=== PATIENT | female | born 1980 | race Caucasian/White ===

== ENCOUNTER 2016-08-12 10:44 | Emergency (ER) | payer OTHER ==
[2016-08-12] MEDS ORDERED: DEXAMETHASONE 10 MG/ML VIAL PO STA (12:25)
[2016-08-12] MEDS ORDERED: DEXAMETHASONE 10 MG/ML VIAL ONE (12:29)
[2016-08-12] MEDS ORDERED: CHERRY SYRUP 10 ML UDC PO ONE (12:29)
== END 2016-08-12 12:41 | disposition home or self-care (01) ==
DX: M75.52 Bursitis of left shoulder (principal); X50.1XXA Overexertion from prolonged static or awkward postures, initial encounter; I10 Essential (primary) hypertension
CPT/HCPCS: 73030; 99283; A9270

== ENCOUNTER 2017-01-01 15:46 | Emergency (ER) | payer OTHER ==
[2017-01-01] MEDS ORDERED: HYDROcod/ACETAM 5/325 MG TABLET PO STA (16:14)
--- NOTE | 2017-01-01 16:16 | ED Physician Documentation ---
PD HPI UPPER EXT INJURY - Stated complaint Stated Complaint: FELL SHOULDER PX - Chief complaint Chief Complaint: Ext Problem - History obtained from History obtained from: Patient - History of Present Illness Location: Left, Shoulder Type of injury: Fall Where injury occurred: Home Timing - onset: Today Timing - details: Abrupt onset Worsened by: Moving Similar symptoms before: Other (impingement) Review of Systems Constitutional: reports: Reviewed and negative Nose: reports: Reviewed and negative Cardiac: reports: Reviewed and negative PD PAST MEDICAL HISTORY - Past Medical History Cardiovascular: Hypertension Respiratory: None Neuro: None Endocrine/Autoimmune: None GI: None DREDGE OPERATOR: None : None HEENT: None Psych: Depression, ADD/ADHD Musculoskeletal: None Derm: None - Past Surgical History Past Surgical History: Yes General: Colonoscopy, EGD /DREDGE OPERATOR: section - Present Medications Home Medications: Ambulatory Orders Medication Instructions Recorded Confirmed HYDROcod/ACETAM 5/325 [[place] 5/325] 1 - 2 ea PO Q6H PRN #15 tablet 08/12/16 HYDROcod/ACETAM 5/325 [[place] 5/325] 1 - 2 ea PO Q6H PRN #15 tablet 01/01/17 Lisinopril 1 mg PO DAILY 01/01/17 01/01/17 - Allergies Allergies/Adverse Reactions: Allergies Allergy/AdvReac Type Severity Reaction Status Date / Time No Known Drug Allergies Allergy Verified 06/05/16 20:43 - Social History Does the pt smoke?: No Smoking Status: Never smoker Does the pt drink ETOH?: Yes Does the pt have substance abuse?: No - Immunizations Immunizations are current?: Yes - POLST Patient has POLST: No PD ED PE NORMAL - Vitals Vital signs reviewed: Yes - General General: Alert and oriented X 3, No acute distress - Neck Neck: Supple, no meningeal sign, No bony TTP - Extremities Extremities: Other (TTP distal clavicle and top of GH joint, can range a bit. Normal radial pulses and hand sensation.) - Neuro Neuro: Alert and oriented X 3, Normal speech - Psych Psych: Normal mood, Normal affect Results - Vitals Vitals: Vital Signs - 24 hr 01/01/17 15:56 Temperature 36.5 C Heart Rate 84 Respiratory 20 Rate Blood Pressure 180/123 H O2 Saturation 100 Oxygen O2 Source Room air - Rads (name of study) L shoulder 2v Radiology: EMP read contemporaneously (negative) Departure - Departure Disposition: 01 Home, Self Care Clinical Impression: Sprain of left shoulder Qualifiers: Encounter type: initial encounter Shoulder sprain type: unspecified sprain Qualified Code(s): S43.402A - Unspecified sprain of left shoulder joint, initial encounter Condition: Good Instructions: ED Sprain Shoulder Prescriptions: HYDROcod/ACETAM 5/325 [[place] 5/325] 1 - 2 ea PO Q6H PRN #15 tablet PRN Reason: Pain Comments: Follow-up with your orthopedic surgeon in about a week with x-rays in hand. Return if worse. Wear the sling for comfort but try to come out of it several times a day to move the shoulder around. Your blood pressure was elevated today on check into the emergency department. This does not mean that you have hypertension, it is a common phenomenon to come to the emergency department and have elevated blood pressure. I recommend that she see her primary care physician within the week to have it rechecked when you are feeling better. Do not drink or drive while taking narcotic pain medication. Note that many narcotic pain relievers also contain Tylenol/acetaminophen. Please ensure that your total dose of acetaminophen from all sources does not exceed 3 g (3000 mg) per day. You may get constipated while on this medication. Take a stool softener such as Colace twice a day while you are on it. Also add an ykos-mey-yegbovb laxative such as senna or MiraLAX on any day that you do not have a bowel movement. If you received a narcotic pain medication or sedative while in the emergency department, do not drive for the next 24 hours.
[2017-01-01] MEDS ORDERED: HYDROcod/ACETAM 5/325 MG TABLET ONE (16:18)
--- NOTE | 2017-01-01 16:52 | XRAY Preliminary Report ---
Exam: XR Shoulder 2 View LT IMPRESSION: No evidence of fracture or dislocation. [facility] SITE ID: [id number]
--- NOTE | 2017-01-01 16:54 | XRAY Report ---
EXAM: LEFT SHOULDER RADIOGRAPHY EXAM DATE: 01/01/2017 04:41 PM. CLINICAL HISTORY: Shoulder inj. COMPARISON: None. TECHNIQUE: 2 views. FINDINGS: Bones: No fracture or focal bony lesion. Joints: No evidence of dislocation. Soft Tissues: No unexpected soft tissue findings. IMPRESSION: No evidence of fracture or dislocation. [facility] Referring Provider Line: [phone] SITE ID: [id number]
[2017-01-01 17:12] VITALS: BP 152/107
== END 2017-01-01 17:11 | disposition home or self-care (01) ==
LOC: ED 15:46
DX: S43.402A Unspecified sprain of left shoulder joint, initial encounter (principal); W18.30XA Fall on same level, unspecified, initial encounter; W22.8XXA Striking against or struck by other objects, initial encounter; Y92.009 Unspecified place in unspecified non-institutional (private) residence as the place of occurrence of the external cause; R03.0 Elevated blood-pressure reading, without diagnosis of hypertension
CPT/HCPCS: 73030; 99283; A9270

== ENCOUNTER 2017-04-27 08:00 | Outpatient (CLI) | payer OTHER ==
[2017-04-27 19:14] LABS: BASOPHILS # (AUTO) 0.1 10^3/uL (0.0-0.1); BASOPHILS % (AUTO) 0.6 %; EOSINOPHILS # (AUTO) 0.2 10^3/uL (0.0-0.7); EOSINOPHILS % (AUTO) 1.2 %; HCT - HEMATOCRIT 39.3 % (37.0-47.0); LYMPHOCYTES # (AUTO) 2.2 10^3/uL (1.5-3.5); MEAN CORPUSCULAR HEMOGLOBIN 28.3 pg (27.0-31.0); MEAN CORPUSCULAR HGB CONC 33.1 g/dL (32.0-36.0); MEAN CORPUSCULAR VOLUME 85.6 fL (81.0-99.0); MEAN PLATELET VOLUME 9.5 fL (7.9-10.8); MONOCYTES # (AUTO) 0.6 10^3/uL (0.0-1.0); MONOCYTES % (AUTO) 4.7 %; NEUTROPHILS % (AUTO) 76.5 %; RED BLOOD COUNT 4.59 10^6/uL (4.20-5.40); RED CELL DISTRIBUTION WIDTH 13.1 % (12.0-15.0); UNCORRECTED WHITE BLOOD COUNT 13.1 x10^3/uL; WHITE BLOOD COUNT 13.1 x10^3/uL (4.8-10.8)
[2017-04-27 19:20] LABS: ALBUMIN/GLOBULIN RATIO 1.5 (1.0-2.2); BILIRUBIN,TOTAL 0.4 mg/dL (0.2-1.0); CALCIUM 9.6 mg/dL (8.5-10.3); CREATININE 0.6 mg/dL (0.4-1.0); POTASSIUM 4.1 mmol/L (3.5-5.0)
[2017-04-29 17:46] LABS: TEST RESULT REPORT
== END 2017-04-27 08:01 | disposition home or self-care (01) ==
LOC: LAB.F 08:00
PROVIDERS: ATTEND Obstetrics & Gynecology
DX: Z36.9 Encounter for antenatal screening, unspecified (principal); Z01.419 Encounter for gynecological examination (general) (routine) without abnormal findings; Z11.3 Encounter for screening for infections with a predominantly sexual mode of transmission
CPT/HCPCS: 36415; 80053; 81001; 81599; 85025; 86762; 86780; 86850; 86900; 86901; 87340; 87389

== ENCOUNTER 2017-05-03 08:00 | Outpatient (CLI) | payer OTHER | END 2017-05-03 23:59 | disposition home or self-care (01) | LOC: LAB.WCP 08:00 | PROVIDERS: ATTEND Obstetrics & Gynecology | DX: Z36.9 Encounter for antenatal screening, unspecified (principal); I10 Essential (primary) hypertension; E11.9 Type 2 diabetes mellitus without complications; E78.9 Disorder of lipoprotein metabolism, unspecified | CPT/HCPCS: 82575; 84156 ==

== ENCOUNTER 2017-05-16 13:59 | Outpatient (CLI) | payer OTHER | END 2017-05-16 14:00 | disposition critical access hospital (66) | LOC: EMS 13:59 | PROVIDERS: ATTEND Surgery | DX: R40.20 Unspecified coma (principal) | CPT/HCPCS: A0425; A0427 ==

== ENCOUNTER 2017-05-16 14:01 | Emergency (ER) | payer OTHER ==
[2017-05-16] MEDS ORDERED: LABETALOL 20 MG/4 ML SYRINGE IVP ONE (14:05)
[2017-05-16] MEDS ORDERED: MAGNESIUM SULFATE 2 GRAM 2 GM/50 ML BAG IV ONE ×6 (14:11→15:36)
[2017-05-16] MEDS ORDERED: LABETALOL 100 MG TABLET PO STA (14:13)
[2017-05-16] MEDS ORDERED: LABETALOL 20 MG/4 ML SYRINGE IVP STA (14:13)
[2017-05-16] MEDS ORDERED: SODIUM CHLORIDE 0.9% 1,000 ML IV ONE (14:14)
--- NOTE | 2017-05-16 14:27 | ED Physician Documentation ---
History of Present Illness - Stated complaint Stated Complaint: SZ - Chief complaint Chief Complaint: Neuro - History obtained from History obtained from: Patient, Family, EMS - History of Present Illness Timing: Today Pain level max: 0 Pain level now: 0 Improved by: nothing Worsened by: nothing - Additonal information Additional information: , EGA 13w1d. States history of HTN and pre-ecamplsia. On labetalol, but missed this am dose. 3 seizures today, lasted approx 1 min each. Given magnesium 4g IV with EMS. Never had seizures before. Bystander CPR was performed for approx 30 secs, but did not lose pulses. Review of Systems Ten Systems: 10 systems reviewed and negative Constitutional: denies: Fever, Chills Ears: denies: Ear pain Nose: denies: Rhinorrhea / runny nose, Congestion Throat: denies: Sore throat Cardiac: denies: Chest pain / pressure Respiratory: denies: Cough GI: denies: Nausea, Vomiting, Diarrhea : denies: Dysuria Skin: denies: Rash Musculoskeletal: denies: Neck pain, Back pain Neurologic: denies: Headache PD PAST MEDICAL HISTORY - Past Medical History Past Medical History: Yes Cardiovascular: Hypertension Respiratory: None Neuro: None Endocrine/Autoimmune: None GI: None TRAVELING NURSE: None, Other : None HEENT: None Psych: Depression, ADD/ADHD Musculoskeletal: None Derm: None Other Past Medical History: pre eclampsia - Past Surgical History Past Surgical History: Yes General: Colonoscopy, EGD /TRAVELING NURSE: section - Present Medications Home Medications: Ambulatory Orders Medication Instructions Recorded Confirmed HYDROcod/ACETAM 5/325 [[place] 5/325] 1 - 2 ea PO Q6H PRN #15 tablet 08/12/16 HYDROcod/ACETAM 5/325 [[place] 5/325] 1 - 2 ea PO Q6H PRN #15 tablet 01/01/17 Lisinopril 1 mg PO DAILY 01/01/17 01/01/17 - Allergies Allergies/Adverse Reactions: Allergies Allergy/AdvReac Type Severity Reaction Status Date / Time No Known Drug Allergies Allergy Verified 06/05/16 20:43 - Social History Does the pt smoke?: No Smoking Status: Never smoker Does the pt drink ETOH?: Yes Does the pt have substance abuse?: No - Immunizations Immunizations are current?: Yes - POLST Patient has POLST: No PD ED PE NORMAL - Vitals Vital signs reviewed: Yes - General General: Alert and oriented X 3, No acute distress, Well developed/nourished - HEENT HEENT: PERRL, Moist mucous membranes, Pharynx benign, Other (no tongue biting) - Neck Neck: Supple, no meningeal sign - Cardiac Cardiac: RRR, Strong equal pulses - Respiratory Respiratory: No respiratory distress, Clear bilaterally - Abdomen Abdomen: Soft, Non tender, Non distended - Derm Derm: Warm and dry - Extremities Extremities: No deformity - Neuro Neuro: Alert and oriented X 3 - Psych Psych: Normal mood, Normal affect Results - Vitals Vitals: Vital Signs - 24 hr 05/16/17 05/16/17 05/16/17 14:03 14:07 14:51 Temperature 36.7 C Heart Rate 110 H 95 Respiratory 16 13 Rate Blood Pressure 158/96 H 121/77 O2 Saturation 85 L 97 97 05/16/17 15:10 Temperature Heart Rate 97 Respiratory 12 Rate Blood Pressure 122/78 O2 Saturation 94 Oxygen O2 Source Room air - Labs Labs: Laboratory Tests 05/16/17 05/16/17 14:24 14:24 WBC 20.5 H RBC 4.20 Hgb 12.0 Hct 35.7 L MCV 85.0 MCH 28.5 MCHC 33.5 RDW 13.6 Plt Count 299 MPV 8.5 Neut # Not Reportable Lymph # Not Reportable [place] # Not Reportable Eos # Not Reportable Baso # Not Reportable Absolute Nucleated RBC Not Reportable Band Neuts % (Manual) 0 Nucleated RBC % Not Reportable Neutrophils # (Manual) 15.8 H Lymphocytes # (Manual) 3.3 Monocytes # (Manual) 1.0 Eosinophils # (Manual) 0.2 Basophils # (Manual) 0.2 H Platelet Estimate NORMAL (130-450,000) RBC Morph Micro Appear NORMAL APPEARANCE Sodium 135 Potassium 3.7 Chloride 108 Carbon Dioxide 19 L Anion Gap 8.0 BUN 6 Creatinine 0.6 Estimated GFR (MDRD) 114 Glucose 131 H Calcium 8.7 Phosphorus 4.7 H Magnesium 4.1 H Total Bilirubin 0.2 AST 16 ALT 15 Alkaline Phosphatase 59 Total Protein 7.1 Albumin 4.0 Globulin 3.1 Albumin/Globulin Ratio 1.3 Lipase 21 L PD MEDICAL DECISION MAKING - ED course Complexity details: reviewed results, re-evaluated patient, considered differential, d/w patient, d/w family ED course: Bedside US reveals and IUP with FHR of 150's bpm[address] Dr. Alexander (OB) at bedside upon arrival. Continued on magnesium 2g/hr IV and given labetalol for BP. [facility]/ consulted for transfer. [id number] Dr. Alexander discussed with Dr. Morris (OB) and Dr. Kinsey (ED) at and recommend sending to the ED for further care. They both accept in transfer. Patient will be sent by airlift to . No further seizures here. Departure - Departure Disposition: 02 Transfer Acute Care Hosp Clinical Impression: Eclampsia Condition: Stable Discharge Date/Time: 05/16/17 15:42
[2017-05-16 14:31] LABS: BASOPHILS % (AUTO) 0.8 %; HCT - HEMATOCRIT 35.7 % (37.0-47.0); LYMPHOCYTES % (AUTO) 13.5 %; MEAN CORPUSCULAR HEMOGLOBIN 28.5 pg (27.0-31.0); MEAN CORPUSCULAR HGB CONC 33.5 g/dL (32.0-36.0); MEAN PLATELET VOLUME 8.5 fL (7.9-10.8); NEUTROPHILS % (AUTO) 80.7 %; RED CELL DISTRIBUTION WIDTH 13.6 % (12.0-15.0); UNCORRECTED WHITE BLOOD COUNT 20.5 x10^3/uL; WHITE BLOOD COUNT 20.5 x10^3/uL (4.8-10.8)
[2017-05-16 14:45] LABS: ALBUMIN/GLOBULIN RATIO 1.3 (1.0-2.2); BILIRUBIN,TOTAL 0.2 mg/dL (0.2-1.0); CALCIUM 8.7 mg/dL (8.5-10.3); CREATININE 0.6 mg/dL (0.4-1.0); MAGNESIUM 4.1 mg/dL (1.7-2.8); PHOSPHORUS 4.7 mg/dL (2.5-4.6); POTASSIUM 3.7 mmol/L (3.5-5.0); TOTAL PROTEIN 7.1 g/dL (6.7-8.2)
[2017-05-16 14:57] LABS: BAND NEUTROPHILS % (MANUAL) 0 %; BASOPHILS % (MANUAL) 1 %; EOSINOPHILS % (MANUAL) 1 %; LYMPHOCYTES % (MANUAL) 16 %; NEUTROPHILS % (MANUAL) 77 %
[2017-05-16 14:58] LABS: NP AUTO DIFFERENTIAL? YES; NP MAN DIFFERENTIAL? NO; PLATELET ESTIMATE, MANUAL NORMAL (130-450,000) (NORMAL)
[2017-05-16 15:11] VITALS: BP 122/78
--- NOTE | 2017-05-16 18:35 | HISTORY & PHYSICAL EXAMINATION ---
DATE OF ADMISSION: 05/16/2017 IDENTIFICATION: A 37-year-old G4, P2-0-1-2 with 13-1/7 week intrauterine . EDC is 11/20/2017. HISTORY OF PRESENT ILLNESS: This is a patient of [facility] who recently experienced a seizure. She was visiting with friends when she had a spontaneous seizure. Family members estimate that the seizure lasted for about 5 minutes though I estimate this time was significantly shorter than this. The family did perform CPR on the patient until the ambulance came. The ambulance crew stated that initial blood pressure was 190/31. The patient was given 4 grams of magnesium sulfate over a 20-minute period. They also noted that she had 2 smaller seizures in the rig. In the emergency room, the patient is much stable and currently her blood pressure is 130s over 90s. She is alert and oriented x3. The patient is very tearful right now and scared. She states she does have a headache but denies any visual changes or right upper quadrant pain. She also denies any vaginal bleeding or contractions. Her , Mauricio, she is here at bedside with her. The patient has been given 2 grams of magnesium sulfate over 2 hours and has also been given labetalol 10 mg IV push, as well as 200 mg of p.o. labetalol. A bedside ultrasound showed a single viable intrauterine with the heart tones in the 150s. It is noted in the patient's records that she did have preeclampsia with her first . On 07/19/2005 at 37 weeks, she was induced for preeclampsia and given magnesium sulfate. She only had chronic hypertension with her second viable , which occurred in 2012. When the patient presented to us for her visit, she was on lisinopril. This was converted over to labetalol 100 mg [address] b[address]i.d. per Dr. Loza. The patient did not take her morning labetalol dose today. PAST MEDICAL HISTORY 1. Chronic hypertension. 2. Chronic nephritis. 3. Bipolar disorder. Her psychiatrist is Dr. Farah in [place], [place]. She did self-discontinued lithium 300 mg b.i.d. PAST SURGICAL HISTORY: delivery x1. ALLERGIES: NO KNOWN DRUG ALLERGIES. MEDICATIONS 1. Labetalol 200 mg 1 tab p.o. b.i.d. 2. vitamins. SOCIAL HISTORY: She does have a distant history of smoking tobacco. She quit smoking about 5 years ago. She did smoke for less than 10 years, which she would smoke 1 or more packs per day. She denies any alcohol use. Her is Hindu and her other sons are Dani and Ariel. PAST OBSTETRICAL HISTORY 1. 07/19/2005, 37 weeks vaginal delivery of a viable male weighing 7 pounds 2 ounces. She did have preeclampsia and was given magnesium sulfate at that time. She also had fever as well as mastitis. 2. 11/2007 she had a therapeutic at 6 weeks' gestation. 3. 11/24/2012 at 42 weeks' gestation, she had a delivery at [facility] secondary to failure to descend. She also was noted to have hypertension, but no preeclampsia. She also did have mastitis after that delivery. PAST GYNECOLOGIC HISTORY: She did have one abnormal Pap smear with spontaneous resolution. FAMILY HISTORY: Asthma and colon cancer. REVIEW OF SYSTEMS: Negative unless otherwise stated. PHYSICAL EXAMINATION VITAL SIGNS: Blood pressure 139/101. GENERAL: The patient is a well-developed, well-nourished female who is currently crying. She is alert and oriented x3. ABDOMEN: Soft, nontender, fundal height is approximately 14 cm. She does have a well-healed Pfannenstiel incision. Labs are currently pending. laboratories reveal that she has a negative Pap smear although it is suggestive of bacterial vaginosis. Chlamydia and gonorrhea are both negative. She had a 24-hour urine collection on 05/05/2017 which showed 168 mg. Her creatinine clearance was 6. ASSESSMENT 1. A 37-year-old G4, P2-0-1-2 with a 39-1/7 week intrauterine . 2. Eclampsia. 3. Improving blood pressure control. PLAN 1. We will continue magnesium sulfate 2 grams an hour. 2. Strict I's and O's with fluid restriction ordered to prevent pulmonary edema. 3. We have consult with the [facility], who accepts transfer of this patient. I spoke to the on-call emergency room physician, Dr. Katiana Kinsey. Dr. Kinsey accepts transfer of care. Svitlana the [facility] nurse did speak to Dr. Radha Morris who is the call attending at [facility] OB services who is aware of the situation and agrees to send the patient to the ER , in which the patient will be seen down there. 4. I will transfer the patient via [facility] to the [facility] in [place]. 5. Discussed with the patient that it is unclear as to her disposition at the [facility]. First and foremost The patient will be stabilized and a workup for the cause of the eclampsia will be performed. Most likely this will include 24-hour urine collection and possibly ultrasound of the renal arteries and a CT of the head. Abdominal ultrasound may be performed in order to evaluate the liver as well. Because eclampsia at 13 weeks' gestation is extremely rare, it is unclear as to how the will play out. Currently, the national standard is viability at 24 weeks. This is much earlier than we would like. The patient and her understood my conversation and are in current agreement to this plan. JOB #: [id number] EXT JOB #:[id number] MTDGomez
== END 2017-05-16 15:42 | disposition short-term general hospital (02) ==
LOC: EDUNIT# → ED 14:01
DX: O15.02 Eclampsia complicating pregnancy, second trimester (principal); O10.911 Unspecified pre-existing hypertension complicating pregnancy, first trimester; Z3A.13 13 weeks gestation of pregnancy
CPT/HCPCS: 36415; 51702; 80053; 83690; 83735; 84100; 85025; 96361; 96365; 96366; 96375; 99284; 99285; A9270; 81001; 81003; 87086

== ENCOUNTER 2017-07-16 12:12 | Outpatient (CLI) | payer OTHER ==
--- NOTE | 2017-07-21 15:24 | Ultrasound Report ---
DATE OF SERVICE: 07/16/2017 OB ULTRASOUND: 07/16/2017 CLINICAL INDICATION: anatomy. TECHNIQUE: Real-time scanning was performed with sales representative livestock static images obtained. LAST MENSTRUAL PERIOD 02/13/2017 Clinical Age 21 weeks 6 days US Age 21 weekds 5 days EFW Hadlock 440 g EFW% Hadlock --- Heart Rate 142 bpm EDC 11/20/2017 US EDC 11/21/2017 BPD Hadlock 21 weeks 3 days; Mean mm 51.0 HC Hadlock 21 weeks 5 days; Mean mm 194.9 AC Hadlock 21 weeks 5 days; Mean mm 167.5 FL Hadlock 21 weeks 3 days; Mean mm 36.2 Presentation variable Placental Location anterior Cervical Length 3.78 cm Amniotic Fluid 6.0 cm FINDINGS: There is a single viable intrauterine gestation, in variable presentation. heart rate is 142 BPM. The placenta is anterior, without evidence of previa. Amniotic fluid volume is subjectively normal. By size, the fetus measures 21 weeks 5 days (21 weeks 6 days per office dating). The following anatomic structures were visualized and appear normal: The intracranial contents, including the ventricles and posterior fossa; the lips and orbits; the spine; the heart, including 4 chamber view and outflow tracts, and diaphragm; the abdominal contents, including the stomach, the bilateral kidneys, and urinary bladder, as well as a normal 3 vessel cord insertion; 4 limbs. No free fluid or adnexal lesion is appreciated. IMPRESSION: SINGLE VIABLE INTRAUTERINE GESTATION, WITH SIZE IN KEEPING WITH PROVIDED DATING. NORMAL ANATOMIC SURVEY. TD: 07/16/2017 16:53 [facility]
== END 2017-07-16 12:13 | disposition home or self-care (01) ==
LOC: DI 12:12
PROVIDERS: ATTEND Obstetrics & Gynecology
DX: Z36.0 Encounter for antenatal screening for chromosomal anomalies (principal)
CPT/HCPCS: 76811

== ENCOUNTER 2018-08-30 04:53 | Outpatient (CLI) | payer SELFPAY | END 2018-08-30 04:54 | disposition critical access hospital (66) | LOC: EMS 04:53 | PROVIDERS: ATTEND Surgery | DX: R11.2 Nausea with vomiting, unspecified (principal); R19.7 Diarrhea, unspecified | CPT/HCPCS: A0425; A0427 ==

== ENCOUNTER 2018-08-30 05:17 | Emergency (ER) | payer SELFPAY ==
[2018-08-30] MEDS ORDERED: ONDANSETRON 4 MG/2 ML VIAL IVP STA (05:25)
[2018-08-30] MEDS ORDERED: HALOPERIDOL 5 MG/ML VIAL IVP ONE (05:25)
[2018-08-30] MEDS ORDERED: SODIUM CHLORIDE 0.9% 1,000 ML IV STA (05:25)
[2018-08-30] MEDS ORDERED: LORazepam 2 MG/ML VIAL IVP STA (05:26)
[2018-08-30 05:44] LABS: BASOPHILS # (AUTO) 0.1 10^3/uL (0.0-0.1); BASOPHILS % (AUTO) 0.3 %; EOSINOPHILS # (AUTO) 0.1 10^3/uL (0.0-0.7); EOSINOPHILS % (AUTO) 0.4 %; HGB - HEMOGLOBIN 13.1 g/dL (12.0-16.0); LYMPHOCYTES # (AUTO) 2.2 10^3/uL (1.5-3.5); LYMPHOCYTES % (AUTO) 12.6 %; MEAN CORPUSCULAR HGB CONC 32.3 g/dL (32.0-36.0); MEAN CORPUSCULAR VOLUME 83.5 fL (81.0-99.0); MEAN PLATELET VOLUME 8.9 fL (7.9-10.8); MONOCYTES # (AUTO) 0.7 10^3/uL (0.0-1.0); MONOCYTES % (AUTO) 4.1 %; NEUTROPHILS # (AUTO) 14.2 10^3/uL (1.5-6.6); NEUTROPHILS % (AUTO) 82.6 %; PLT - PLATELET COUNT 367 10^3/uL (130-450); RED BLOOD COUNT 4.84 10^6/uL (4.20-5.40); RED CELL DISTRIBUTION WIDTH 14.1 % (12.0-15.0); WHITE BLOOD COUNT 17.2 x10^3/uL (4.8-10.8)
[2018-08-30 05:55] LABS: ALBUMIN 4.5 g/dL (3.2-5.5); ALBUMIN/GLOBULIN RATIO 1.6 (1.0-2.2); BILIRUBIN,TOTAL 1.2 mg/dL (0.2-1.0); CALCIUM 9.4 mg/dL (8.5-10.3); CREATININE 0.6 mg/dL (0.4-1.0); TOTAL PROTEIN 7.4 g/dL (6.7-8.2)
[2018-08-30] MEDS ORDERED: METOCLOPRAMIDE 10 MG/2 ML VIAL IVP STA (06:44)
[2018-08-30] MEDS ORDERED: PROMETHAZINE INJ 12.5 MG in SODIUM CHLORIDE 0.9% 50 ML IV STA (06:44)
--- NOTE | 2018-08-30 06:52 | ED Physician Documentation ---
PD HPI NVD - Stated complaint Stated Complaint: N/V/D - Chief complaint Chief Complaint: Abd Pain - History obtained from History obtained from: Patient - History of Present Illness Timing - onset: How many hours ago (12) Timing - duration: Hours (12) Timing - details: Abrupt onset Pain level max: 3 Pain level now: 3 Severity Comments: Moderate Associated symptoms: Abdominal pain Contributing factors: Other (Marijuana) Improved by: Laying still Worsened by: Moving Review of Systems Constitutional: reports: Reviewed and negative Eyes: reports: Reviewed and negative Ears: reports: Reviewed and negative Nose: reports: Reviewed and negative Throat: reports: Reviewed and negative Cardiac: reports: Reviewed and negative Respiratory: reports: Reviewed and negative GI: reports: Abdominal Pain, Nausea, Vomiting : reports: Reviewed and negative Skin: reports: Reviewed and negative Musculoskeletal: reports: Reviewed and negative Neurologic: reports: Reviewed and negative Psychiatric: reports: Reviewed and negative Endocrine: reports: Reviewed and negative Immunocompromised: reports: Reviewed and negative PD PAST MEDICAL HISTORY - Past Medical History Cardiovascular: Hypertension Respiratory: None Endocrine/Autoimmune: None GI: None PEDIATRIC NEPHROLOGIST: None, Other : None HEENT: None Psych: Depression, ADD/ADHD Musculoskeletal: None Derm: None - Past Surgical History Past Surgical History: Yes General: Colonoscopy, EGD /PEDIATRIC NEPHROLOGIST: section - Present Medications Home Medications: Ambulatory Orders Medication Instructions Recorded Confirmed HYDROcod/ACETAM 5/325 [[place] 5/325] 1 - 2 ea PO Q6H PRN #15 tablet 08/12/16 HYDROcod/ACETAM 5/325 [Lewis 5/325] 1 - 2 ea PO Q6H PRN #15 tablet 01/01/17 Lisinopril 1 mg PO DAILY 01/01/17 01/01/17 Capsaicin [High Potency Capsaicin] 42.5 gm TP TID PRN #1 tube 08/30/18 - Allergies Allergies/Adverse Reactions: Allergies Allergy/AdvReac Type Severity Reaction Status Date / Time No Known Drug Allergies Allergy Verified 06/05/16 20:43 - Social History Does the pt smoke?: No Smoking Status: Never smoker Does the pt drink ETOH?: Yes Does the pt have substance abuse?: No - Immunizations Immunizations are current?: Yes - POLST Patient has POLST: No PD ED PE NORMAL - Vitals Vital signs reviewed: Yes - General General: Alert and oriented X 3, No acute distress - HEENT HEENT: PERRL - Neck Neck: Supple, no meningeal sign - Cardiac Cardiac: RRR, No murmur - Respiratory Respiratory: Clear bilaterally - Abdomen Abdomen: Normal bowel sounds, Soft, Non tender, Non distended - Derm Derm: Warm and dry - Extremities Extremities: No deformity - Neuro Neuro: Alert and oriented X 3 - Psych Psych: Normal mood, Normal affect Results - Vitals Vitals: Vital Signs - 24 hr 08/30/18 08/30/18 05:24 05:27 Temperature 36.2 C L Heart Rate 53 L 73 Respiratory 18 Rate Blood Pressure 119/67 O2 Saturation 100 Oxygen O2 Source Room air - Labs Labs: Laboratory Tests 08/30/18 08/30/18 05:38 05:38 WBC 17.2 H RBC 4.84 Hgb 13.1 Hct 40.4 MCV 83.5 MCH 27.0 MCHC 32.3 RDW 14.1 Plt Count 367 MPV 8.9 Neut # (Auto) 14.2 H Lymph # (Auto) 2.2 [place] # (Auto) 0.7 Eos # (Auto) 0.1 Baso # (Auto) 0.1 Absolute Nucleated RBC 0.01 Nucleated RBC % 0.1 Sodium 137 Potassium 3.5 Chloride 106 Carbon Dioxide 17 L Anion Gap 14.0 H BUN 14 Creatinine 0.6 Estimated GFR (MDRD) 113 Glucose 224 H Calcium 9.4 Total Bilirubin 1.2 H AST 19 ALT 10 Alkaline Phosphatase 67 Total Protein 7.4 Albumin 4.5 Globulin 2.9 Albumin/Globulin Ratio 1.6 Lipase 27 PD MEDICAL DECISION MAKING - ED course Complexity details: reviewed results, re-evaluated patient, d/w patient ED course: 38-year-old female with daily marijuana use presents with severe nausea, vomiting, abdominal pain. Benign abdominal exam. Symptoms improved somewhat with Haldol and Ativan. Patient also given Zofran, Phenergan, Reglan. Brief intervention performed regarding marijuana cessation. Patient discharged with primary care follow-up. Departure - Departure Disposition: 01 Home, Self Care Clinical Impression: Cyclic vomiting syndrome Qualifiers: Vomiting Intractability: non-intractable Nausea presence: with nausea Qualified Code(s): G43.A0 - Cyclical vomiting, not intractable Condition: Stable Instructions: Cyclic Vomiting Syndrome Ch Follow-Up: Your, PCP [Other] Prescriptions: Capsaicin [High Potency Capsaicin] 42.5 gm TP TID PRN #1 tube PRN Reason: Nausea / Vomiting
[2018-08-30 08:03] VITALS: BP 147/87
== END 2018-08-30 09:09 | disposition home or self-care (01) ==
LOC: EDUNIT# → ED 05:17
DX: G43.A0 Cyclical vomiting, in migraine, not intractable (principal); F12.90 Cannabis use, unspecified, uncomplicated; I10 Essential (primary) hypertension
CPT/HCPCS: 36415; 80053; 83690; 85025; 96361; 96365; 96375; 99283; J2060; J2765; J7040

== ENCOUNTER 2019-07-19 08:50 | Outpatient (CLI) | payer MEDICAID | END 2019-07-19 08:51 | disposition critical access hospital (66) | LOC: EMS 08:50 | PROVIDERS: ATTEND Surgery | DX: M25.572 Pain in left ankle and joints of left foot (principal); W18.39XA Other fall on same level, initial encounter; Y92.008 Other place in unspecified non-institutional (private) residence as the place of occurrence of the external cause | CPT/HCPCS: A0425; A0427; A0999 ==

== ENCOUNTER 2019-07-19 09:24 | Emergency (ER) | payer MEDICAID ==
[2019-07-19] MEDS ORDERED: MORPHINE 10 MG/ML VIAL IVP STA (09:55)
[2019-07-19] MEDS ORDERED: SODIUM CHLORIDE 0.9% 1,000 ML IV ONE (09:55)
--- NOTE | 2019-07-19 09:55 | ED Physician Documentation ---
PD HPI LOWER EXT INJURY - Stated complaint Stated Complaint: L ANKLE PX - Chief complaint Chief Complaint: Trauma Ext - History obtained from History obtained from: Patient - History of Present Illness PD HPI LOW EXT INJURY LOCATION: Left, Ankle Type of injury: Fall, Twist Where injury occurred: Home (tripped over baby gate and fell, twisting ankle. [facility] on gate, with small laceration there.) Timing - onset: Today (just REHAB SPEC) Timing - details: Abrupt onset, Still present Improved by: Immobilization (with splint by EMS) Worsened by: Moving, Palpating Associated symptoms: No: Weakness, Numbness Contributing factors: No: Anticoagulated, Prior ortho surgery Similar symptoms before: Has not had sx before Recently seen: Not recently seen Review of Systems Skin: reports: Laceration (s) Musculoskeletal: denies: Neck pain, Back pain Neurologic: denies: Confused, Altered mental status, Headache, Head injury, LOC PD PAST MEDICAL HISTORY - Past Medical History Past Medical History: Yes Cardiovascular: Hypertension Respiratory: None Endocrine/Autoimmune: None GI: None SPECIAL EDUCATION PARAEDUCATOR: None, Other : None HEENT: None Psych: Depression, ADD/ADHD Musculoskeletal: None Derm: None - Past Surgical History Past Surgical History: Yes General: Colonoscopy, EGD /SPECIAL EDUCATION PARAEDUCATOR: section - Present Medications Home Medications: Ambulatory Orders Medication Instructions Recorded Confirmed HYDROcod/ACETAM 5/325 [[place] 5/325] 1 - 2 ea PO Q6H PRN #15 tablet 08/12/16 HYDROcod/ACETAM 5/325 [[place] 5/325] 1 - 2 ea PO Q6H PRN #15 tablet 01/01/17 lisinopriL [Lisinopril] 1 mg PO DAILY 01/01/17 01/01/17 Capsaicin [High Potency Capsaicin] 42.5 gm TP TID PRN #1 tube 08/30/18 Hydrocodone/Acetaminophen [[place] 1 each PO Q6H PRN #20 tablet 07/19/19 5-325 Tablet] Ibuprofen [Motrin] 600 mg PO TID PRN #25 tab 07/19/19 - Allergies Allergies/Adverse Reactions: Allergies Allergy/AdvReac Type Severity Reaction Status Date / Time No Known Drug Allergies Allergy Verified 07/19/19 09:41 - Social History Does the pt smoke?: No Smoking Status: Never smoker Does the pt drink ETOH?: Yes Does the pt have substance abuse?: No - Immunizations Immunizations are current?: Yes - POLST Patient has POLST: No PD ED PE NORMAL - Vitals Vital signs reviewed: Yes - General General: Alert and oriented X 3, Well developed/nourished, Other (appears in pain with left ankle movement as I unwrap splint gently for xray. ) - HEENT HEENT: Other (small abrasion left forehead; not tender) - Neck Neck: Supple, no meningeal sign, No bony TTP - Cardiac Cardiac: RRR, No murmur - Respiratory Respiratory: Clear bilaterally, Other (no pain with breathing) - Abdomen Abdomen: Soft, Non tender - Derm Derm: Normal color, Warm and dry - Extremities Extremities: Other (left ankle with some swelling. Tender at malleoli both sides. No gross deformity. Good pulses and color of toes. Small 1/2 cm laceration anterior proximal tibial area, just below knee. No bony tenderness there. ) - Neuro Neuro: Alert and oriented X 3, No motor deficit, No sensory deficit, Normal speech Results - Vitals Vitals: Vital Signs - 24 hr 07/19/19 07/19/19 09:36 11:38 Temperature 36.8 C 37.1 C Heart Rate 64 69 Respiratory 14 18 Rate Blood Pressure 121/100 H 142/87 H O2 Saturation 100 97 Oxygen O2 Source Room air - Rads (name of study) left ankle Radiology: Prelim report reviewed (bilmalleolar fracture), See rad report Procedures - Splint (location) left ankle Splint applied by: Tech Type of splint: Fiberglass, Short leg, Posterior, Stirrup Other: Patient tolerated well, No complications, Neurovascular intact, Crutches provided PD MEDICAL DECISION MAKING - ED course Complexity details: reviewed results, considered differential (presume ankle fracture. Given pain meds prior to xray. ), d/w patient Departure - Departure Disposition: 01 Home, Self Care Clinical Impression: Bimalleolar fracture of left ankle Qualifiers: Encounter type: initial encounter Fracture type: closed Qualified Code(s): S82.842A - Displaced bimalleolar fracture of left lower leg, initial encounter for closed fracture Condition: Stable Record reviewed to determine appropriate education?: Yes Instructions: ED Fx Ankle General, ED Splint Care Fiberglass Follow-Up: Harvey Mckinnon MD [Provider Admit Priv/Credential] - Prescriptions: Hydrocodone/Acetaminophen [[place] 5-325 Tablet] 1 each PO Q6H PRN #20 tablet PRN Reason: Pain Ibuprofen [Motrin] 600 mg PO TID PRN #25 tab PRN Reason: Pain Comments: Keep the splint clean and dry. Elevate rest and ice the ankle often to keep swelling minimal. Crutches for nonweightbearing. Call the orthopedic office today for an a follow-up appointment for early next week for recheck and change to cast potentially and also for discussion of surgery or not. Injuries like this commonly needs some surgery and this is typically done after any swelling is improved the following week or so after injury. Anti-inflammatory such as ibuprofen 3 times a day. Add Tylenol if needed for pain. Add hydrocodone if needed for worse pain. Discharge Date/Time: 07/19/19 12:59
[2019-07-19] MEDS ORDERED: KETOROLAC 30 MG/ML VIAL IVP STA (09:56)
[2019-07-19] MEDS ORDERED: ONDANSETRON 4 MG/2 ML VIAL IVP STA (09:56)
--- NOTE | 2019-07-19 10:31 | XRAY Report ---
Reason: fall/twist ankle - marked pain Procedure Date: 07/19/2019 Accession Number: [id number] / [id number] Procedure: XR - Ankle 3 View LT CPT Code: Final Report FULL RESULT: EXAM: LEFT ANKLE RADIOGRAPHY EXAM DATE: 07/19/2019 10:15 AM. CLINICAL HISTORY: Fall/twist ankle - marked pain. COMPARISON: None. TECHNIQUE: 3 views. FINDINGS: Bones: Minimally displaced oblique distal fibula/ lateral malleolus fracture, extending to the level of the tibial plafond, Jorgensen type B. Transverse fracture through the base of the medial malleolus with mild lateral displacement of the distal fracture fragment. Joints: Mild anteromedial widening of the tibiotalar joint. Soft Tissues: Diffuse soft tissue swelling. IMPRESSION: Bimalleolar ankle fracture with associated mild anteromedial widening of the tibiotalar joint. RADIA
[2019-07-19] MEDS ORDERED: HYDROmorphone 1 MG/ML CARPUJECT IVP STA (11:54)
[2019-07-19 12:05] VITALS: BP 142/87
== END 2019-07-19 12:59 | disposition home or self-care (01) ==
LOC: EDUNIT# → ED 09:24
DX: S82.842A Displaced bimalleolar fracture of left lower leg, initial encounter for closed fracture (principal); S81.812A Laceration without foreign body, left lower leg, initial encounter; S00.81XA Abrasion of other part of head, initial encounter; W01.198A Fall on same level from slipping, tripping and stumbling with subsequent striking against other object, initial encounter; X50.1XXA Overexertion from prolonged static or awkward postures, initial encounter; Y92.009 Unspecified place in unspecified non-institutional (private) residence as the place of occurrence of the external cause; I10 Essential (primary) hypertension
CPT/HCPCS: 73610; 96361; 96374; 96375; 99284; 99285; J1170

== ENCOUNTER 2019-07-21 10:33 | Outpatient (CLI) | payer MEDICAID | END 2019-07-21 10:34 | disposition home or self-care (01) | LOC: EMS 10:33 | PROVIDERS: ATTEND Surgery | DX: Z04.1 Encounter for examination and observation following transport accident (principal) ==

== ENCOUNTER 2019-07-21 14:38 | Emergency (ER) | payer MEDICAID ==
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
[2019-07-21] MEDS ORDERED: oxyCODONE 5 MG TABLET PO STA ×2 (17:39→21:35)
[2019-07-21] MEDS ORDERED: ACETAMINOPHEN 325 MG TABLET PO STA ×2 (17:39→21:35)
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
[2019-07-21] MEDS ORDERED: HYDROmorphone 1 MG/ML CARPUJECT IM STA (20:23)
[2019-07-21] MEDS ORDERED: HYDROmorphone 1 MG/ML CARPUJECT ONE (20:24)
[2019-07-21 21:52] VITALS: BP 188/119
== END 2019-07-21 21:52 | disposition home or self-care (01) ==
LOC: ED 14:38
DX: S13.161A Dislocation of C5/C6 cervical vertebrae, initial encounter (principal); M48.02 Spinal stenosis, cervical region; S00.83XA Contusion of other part of head, initial encounter; M54.5 Low back pain; V48.5XXA Car driver injured in noncollision transport accident in traffic accident, initial encounter; Y92.410 Unspecified street and highway as the place of occurrence of the external cause; I10 Essential (primary) hypertension
CPT/HCPCS: 72100; 72125; 72141; 96372; 99284; A9270; J1170

== ENCOUNTER 2019-07-23 17:14 | Outpatient (CLI) | payer MEDICAID | END 2019-07-23 17:15 | disposition critical access hospital (66) | LOC: EMS 17:14 | PROVIDERS: ATTEND Surgery | DX: R51 Headache (principal); M54.2 Cervicalgia | CPT/HCPCS: A0425; A0429; A0999 ==

== ENCOUNTER 2019-07-23 17:47 | Emergency (ER) | payer MEDICAID ==
[2019-07-23] MEDS ORDERED: HALOPERIDOL 5 MG/ML VIAL IVP ONE (17:52)
[2019-07-23] MEDS ORDERED: KETOROLAC 15 MG/ML VIAL IVP STA (17:52)
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
[2019-07-23] MEDS ORDERED: HYDROmorphone 1 MG/ML CARPUJECT IVP STA (18:54)
--- NOTE | 2019-07-23 18:57 | CT Report ---
Reason: concussion Procedure Date: 07/23/2019 Accession Number: [id number] / [id number] Procedure: CT - HEAD WO CPT Code: Final Report FULL RESULT: EXAM: CT HEAD EXAM DATE: 07/23/2019 06:29 PM. CLINICAL HISTORY: Concussion. Increasing neck pain and headache. COMPARISON: None. TECHNIQUE: Multiaxial CT images were obtained from the foramen magnum to the vertex. Reformats: Sagittal and coronal. IV contrast: None. In accordance with CT protocol optimization, one or more of the following dose reduction techniques were utilized for this exam: automated exposure control, adjustment of mA and/or KV based on patient size, or use of iterative reconstructive technique. FINDINGS: Parenchyma: No intraparenchymal hemorrhage. No evidence of mass, midline shift, or CT findings of infarction. Avalos-white differentiation is distinct. Extraaxial Spaces: Normal for age. No subdural or epidural collections identified. Ventricles: Normal in size and position. Sinuses and Orbits: Imaged paranasal sinuses, orbits, and mastoids show no significant abnormality. Bones: No evidence of fracture or calvarial defect. Other: None. IMPRESSION: Negative for a focal or acute intracranial abnormality. RADIA
[2019-07-23] MEDS ORDERED: oxyCODONE/ACET 5/325 Prepack 4 PO STA (19:36)
[2019-07-23 20:53] VITALS: BP 149/87
== END 2019-07-23 21:02 | disposition home or self-care (01) ==
LOC: EDUNIT# → ED 17:47
DX: M50.220 Other cervical disc displacement, mid-cervical region, unspecified level (principal); S09.90XA Unspecified injury of head, initial encounter; S19.9XXA Unspecified injury of neck, initial encounter; V49.9XXA Car occupant (driver) (passenger) injured in unspecified traffic accident, initial encounter; I10 Essential (primary) hypertension
CPT/HCPCS: 70450; 96374; 96375; 99284; J1170

== ENCOUNTER 2019-08-09 05:56 | Day surgery (SDC) | payer MEDICAID ==
[2019-08-09] MEDS ORDERED: LACTATED RINGERS 1,000 ML IV ONE ×3 (06:15→14:26)
[2019-08-09] MEDS ORDERED: CEFAZOLIN SODIUM IN 0.9 % NACL 2 GM/100 ML BAG IV ONE (06:19)
[2019-08-09 06:52] LABS: HCG UR QUAL NEGATIVE
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
[2019-08-09] MEDS ORDERED: MIDAZOLAM 2 MG/2 ML VIAL ONE ×2 (10:11→13:58)
[2019-08-09] MEDS ORDERED: PROPOFOL 200 MG/20 ML VIAL IVP ONE (10:12)
[2019-08-09] MEDS ORDERED: MIDAZOLAM 2 MG/2 ML VIAL IVP ONE (10:12)
[2019-08-09] MEDS ORDERED: fentaNYL 100 MCG/2 ML VIAL IVP ONE (10:12)
[2019-08-09] MEDS ORDERED: KETAMINE 500 MG/10 ML VIAL IVP ONE (10:12)
[2019-08-09] MEDS ORDERED: HYDROmorphone 1 MG/ML CARPUJECT IVP ONE (10:12)
[2019-08-09] MEDS ORDERED: DEXAMETHASONE 4 MG/ML VIAL IVP ONE (10:12)
[2019-08-09] MEDS ORDERED: ONDANSETRON 4 MG/2 ML VIAL IVP ONE (10:12)
[2019-08-09] MEDS ORDERED: BUPIVACAINE 0.25%-EPI 1:200000 PF 30 ML VIAL SUBQ ONE (10:54)
[2019-08-09] MEDS ORDERED: oxyCODONE 5 MG TABLET PO PRN (13:10)
[2019-08-09] MEDS ORDERED: ONDANSETRON 4 MG/2 ML VIAL IVP PRN (13:10)
--- NOTE | 2019-08-09 13:10 | IMMEDIATE POSTOPERATIVE NOTE ---
Immediate Postoperative Note - Procedure Note Procedure Date: 08/09/19 Pre-Op Diagnosis: left bi mal ankle fx Procedure: orif left bi mal ankle fracture Post-Op Diagnosis: same Primary Surgeon: Debbie Mckinnon MD Anesthesia Type: General LMA, Regional block Findings: as above Complications: No complications Estimated Blood Loss (in cc): 25 Drains, Catheters, Devices: na Specimens and Cultures: na Plan of Care: std post op left ankle orif protocol
[2019-08-09] MEDS: HYDROmorphone 1 MG/ML CARPUJECT ONE ×2 (13:21→13:31)
[2019-08-09] MEDS ORDERED: ACETAMINOPHEN 1,000 MG/100 ML 100 ML IV ONE (13:22)
[2019-08-09] MEDS ORDERED: KETOROLAC 15 MG/ML VIAL ONE (13:33)
[2019-08-09] MEDS ORDERED: ONDANSETRON 4 MG/2 ML VIAL ONE (13:41)
[2019-08-09] MEDS: fentaNYL 100 MCG/2 ML VIAL ONE ×3 (13:43→14:22)
[2019-08-09] MEDS ORDERED: HYDROmorphone 0.5 MG/0.5 ML SYRINGE ONE (14:08)
[2019-08-09] MEDS ORDERED: fentaNYL 100 MCG/2 ML VIAL ONE (14:22)
--- NOTE | 2019-08-09 14:29 | XRAY Report ---
Reason: ORIF LEFT ANKLE Procedure Date: 08/09/2019 Accession Number: [id number] / [id number] Procedure: FL - OR C-Arm Procedure CPT Code: Final Report FULL RESULT: EXAM: FLUOROSCOPIC GUIDANCE EXAM DATE: 08/09/2019 12:44 PM. CLINICAL HISTORY: ORIF LEFT ANKLE. COMPARISON: None. FINDINGS: A plate and screws is seen within the distal fibula. Intraoperative imaging of the medial malleolus was performed. 2 screws were placed. IMPRESSION: Fluoroscopic guidance provided for Dr. Mckinnon. Total fluoroscopy time: 0.2 min. Number of images: 25. RADIA
--- NOTE | 2019-08-09 14:30 | ANESTHESIA PROCEDURE NOTE ---
Diagnosis: Left bimalleolar ankle fracture Procedure: Left adductor canal block and left popliteal block Consent for Procedure(s) Verified and Reviewed: Yes Height and Weight: Height 5 ft 3 in Weight (kg) 72.9 kg Body Mass Index 30.1 Vital Signs: Temp Pulse Resp BP Pulse Ox 37.5 C 94 14 146/104 H 97 08/09/19 14:10 08/09/19 14:15 08/09/19 14:15 08/09/19 14:15 08/09/19 14:15 Allergies No Known Drug Allergies Allergy (Verified 07/23/19 17:50) Requesting Provider: Ino Location: Left ASA classification: 2-Mild systemic disease Is this case an emergency?: No Anes. Monitoring and Equipment: Non-invasive BP, Pulse oximetery Anes. Procedure Start Time: 09:56 Anes. Procedure Stop Time: 10:10 Procedure Notes: After time out the patient was given 4mg versed and 100mcg fentanyl IV. The patient's left medial thigh was prepped with chlorohexadine. The left adductor canal was imaged on ultrasound and a 22G blunted stimiplex needle was advanced towards the canal. A total of 20ml of 0.5% ropivicaine with 2mg decadron was i njected with adequate spread noted. The patient was then positioned lateral and the popliteal fossa was prepped with chlorohexadine. The sciatic nerve was imaged using ultrasound and a 22G stimiplex needle was advanced towards the nerve sheath. A total of 20ml of 0.5% ropivicane plus 2mg of decadron was injected around the nerve. Patient tolerated the procedure well. Full evaluation is pending. See Ultrasound hard drive for saved images.
[2019-08-09 15:03] VITALS: BP 156/96
--- NOTE | 2019-08-11 08:22 | OPERATIVE REPORT ---
DATE OF SERVICE: 08/09/2019 Physician: Harvey Mckinnon MD SURGEON: Harvey Mckinnon MD SOCKET WELDER HELPER: None. ANESTHESIA PROVIDER: Carolina Banks CRNA. ANESTHESIA TYPE: General anesthesia as well as left leg regional block under ultrasound guidance. ESTIMATED BLOOD LOSS: Less than 50 mL TOURNIQUET TIME: 120 minutes at 250 mmHg. FLUIDS: Lactated Ringer's 1500 mL. ORTHOPEDIC IMPLANTS: Amie distal fibular periarticular plate long cloverleaf lateral with associat ed fully threaded 4.0 cancellous screws and fully threaded 3.5 cortical screws. Additional screws fr om Amie small fragment set including partially threaded cancellous screw 4-0 for medial malleolus a nd interfragmentary screws laterally 3.5 mm cortical screws. INTRAOPERATIVE COMPLICATIONS: None noted. PREOPERATIVE DIAGNOSIS: Left bimalleolar ankle fracture. POSTOPERATIVE DIAGNOSIS: Left bimalleolar ankle fracture. PROCEDURES 1. Open reduction and internal fixation, left ankle lateral malleolus. 2. Open reduction and internal fixation, left ankle medial malleolus. HISTORY OF PRESENT ILLNESS: Patient is a young woman who injured her left ankle and is found to have an unstable pattern ankle fracture. She is seen in the clinic and is indicated for operative treatm ent. We discussed risks, benefits, and alternatives of operative and nonoperative treatment at that time. These are again highlighted in the preoperative care unit with her mother present. We also di scussed relevant literature natural history of these types of injuries and the potential for short an d long-term problems with and without surgery. Patient's questions are answered. She verbalized understanding of the above discussion and verbalize d wish to proceed with operative treatment. Informed consent is given. PROCEDURE IN DETAIL: On 08/09/2019, patient is identified in the preoperative care unit. She identif ies her left ankle as the operative site. Skin is examined. Left ankle is signed. She is given pre operative weight-based IV antibiotics and then brought to the operating room after site identificatio n and regional block performed under ultrasound guidance by anesthesia team. At this time, patient is placed supine on the operating table. Head, neck and extremities are placed in anatomically comfortable and safe positions to avoid peripheral nerve stretch and compression. G eneral anesthesia is administered. Patient's left lower extremity has a well-padded tourniquet place d high on the left thigh, taking care to avoid encumbrance of genitalia. Patient's left ankle is sha desire and medially and laterally. Residual hair is collected. Patient's left lower extremity is then pre-scrubbed with Hibiclens solution, followed by alcohol and then prepping and draping with ChloraPr ep solution. At this time, surgical pause is performed. Left ankle is identified as the operative site. At this point, Esmarch bandage is used to exsanguinate the limb. Tourniquet inflated. Esmarch is removed. Incision is made at the posterior border of the lateral malleolus through skin only and then spreadin g dissection carried out down to the periosteum overlying the bone. Care is taken to avoid any cutti ng beneath the skin and also to avoid any exuberant retraction of superficial peroneal nerve. At thi s point, the periosteum is identified and then incision is made directly on the bone and then an elev ator is used to extend reflection of the periosteum proximally and distally from the fracture site. There is some minimal callus noted. This is curetted and rongeured in a way such that the fracture s ite is clean. This is irrigated. Edges of the fracture site are identified and then held in reducti on with a reduction maneuver using 2 lobster claw reduction clamps. At this point, reduction of late ral malleolus is noted to be near anatomic and 2 anterior to posterior interfragmentary lag screws ar e placed per standard AO technique just through the second cortex to avoid over exuberant penetration or any soft tissue injury posteriorly. These achieve good fixation across the fracture site and are aimed in a direction perpendicular to the fracture site. At this point, a neutralization plate is placed. Because of the long obliquity of the fracture a mariana g plate is selected, such that there would be enough screw holes and cortical purchase above the frac ture site. The next size down was just minimally extending beyond the fracture site. At this point, this is K-wired in place and noted to be in acceptable position and then multiple 4-0 fully threaded cancellous screws are placed in a unicortical plate position distally, taking care to avoid penetration into the joint and then more proximally bicortical 3.[address] d in standard technique. This achieves good neutralization plate fixation. At this time, the wound is copiously irrigated and hemostasis achieved. Periosteum is closed, where it maybe towards the dis moe aspect of the ankle and implant and then skin is closed with 0 Vicryl, 2-0 Vicryl, and then ultim ately interrupted nylon suture. It should be noted that soft tissue planes are identified positively to avoid any suturing of adjacent neurovascular structures. At this point, attention is directed towards the medial malleolus, where an incision is made over the fracture site in the distal tip of the medial malleolus through skin only and then spreading dissect ion carried out. There is a bridging vein portion of the saphenous system, which is tied with a Vicr yl, and then cauterized and cut so that the saphenous could be retracted posteriorly and then the fra cture site is identified. Periosteum is incised directly and then elevation of the periosteum at the fracture site just above and below is performed. Minimal callus is removed. This is copiously irri gated. Joint is examined and copiously irrigated and noted to be free of loose debris and then a poi nt-to-point reduction clamp is used along with a dental pick to facilitate essentially anatomic reduc tion of the medial malleolus. This is held with a [id number]-km-sqivt and then sequential drills initiall y planned to be 2, 2.5 mm drills, but it appeared as if the fracture fragment is large enough to like ly accommodate 4.0 cancellous screws, as such the posterior one is converted to a 2.5 mm drill both i n parallel fashion perpendicular to the fracture site. These are seated after splitting of the soft tissue and making sure that there is protection of the adjacent tendinous structures. Then these are exchanged for partially threaded cancellous screws, given the small nature of the fracture fragment. The posterior one has a small head used. The anterior one has a larger regular Amie small fragme nt screw is used. This achieved excellent compression across the fracture and maintenance of the red uction. At this point, examination under fluoroscopic images again performed with stress exam showin g appropriate syndesmotic overlap. No significant widening, though there is noted to be slight talar tilt with stress examination. Final fluoroscopic images are taken. Medial wound is copiously irrig ated and closed with 0 Vicryl, 2-0 Vicryl interrupted nylon suture. Skin washed and dried. Xeroform dressing applied on the medial and lateral wounds, 4 x 4, Sof-Rol, a nd then patient placed in a well-padded AO [place] type splint. Patient tolerated the procedure well. Instrument and sponge counts were correct. Patient is transfe rred to recovery room in stable condition. She will follow standard postoperative left ankle ORIF pr otocol. Patient's mother is contacted. The case is discussed. Questions answered. POSTOPERATIVE PLAN: Reviewed. Patient will be on perioperative antibiotics for 24 hours. She will be on analgesic medication, oral narcotics, managed by her mother, given her previous dependency hist ory. She will use [id number] stool softener if taking narcotics. She would be on aspirin full size once daily for 1 month for DVT prophylaxis. Patient will ice and elevate when at rest. She wi ll be nonweightbearing on the left lower extremity. She will keep the splint clean, dry and intact a nd follow up in 10-14 days or sooner should problems or questions arise. Mother's questions are answered. She verbalized understanding and satisfaction with the plan as the patient had preoperatively. TD: 08/11/2019 07:30
== END 2019-08-09 05:57 | disposition home or self-care (01) ==
LOC: SDS 05:56
PROVIDERS: ATTEND Orthopaedic Surgery Sports Medicine
PROC: 0QSH04Z Reposition Left Tibia with Internal Fixation Device, Open Approach (ICD-10-PCS; 2019-08-09)
PROC: 0QSK04Z Reposition Left Fibula with Internal Fixation Device, Open Approach (ICD-10-PCS; principal; 2019-08-09 07:30)
DX: S82.842A Displaced bimalleolar fracture of left lower leg, initial encounter for closed fracture (principal); I10 Essential (primary) hypertension; M48.02 Spinal stenosis, cervical region; F17.210 Nicotine dependence, cigarettes, uncomplicated; Z79.899 Other long term (current) drug therapy; Z86.32 Personal history of gestational diabetes; Z86.69 Personal history of other diseases of the nervous system and sense organs
CPT/HCPCS: 27814; 81025; C1713; J0131; J0690; J1170; J7120

== ENCOUNTER 2019-11-08 09:17 | Emergency (ER) | payer MEDICAID ==
[2019-11-08 09:38] VITALS: BP 156/103
[2019-11-08] MEDS ORDERED: methocarbamoL 500 MG TABLET PO STA (09:43)
[2019-11-08] MEDS ORDERED: HYDROcod/ACETAM 5/325 MG TABLET PO STA (09:43)
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
--- NOTE | 2019-11-08 10:14 | XRAY Report ---
Reason: 3 months post op; abrupt pain with walking yesterd Procedure Date: 11/08/2019 Accession Number: [id number] / [id number] Procedure: XR - Ankle 3 View LT CPT Code: Final Report FULL RESULT: EXAM: LEFT ANKLE RADIOGRAPHY 3 VIEWS EXAM DATE: 11/08/2019. CLINICAL HISTORY: 3 months post op; abrupt pain with walking yesterday. COMPARISON: AP and lateral views done 09/26/2019. TECHNIQUE: AP, oblique and lateral views. FINDINGS: Bones: No acute fracture or bone lesion. Oblique fixation screws in the medial malleolus, and the plate and multiple screws in the distal fibula are unchanged. No change in position of the previous fractures. Diffuse demineralization of the bones of the foot is unchanged. Joints: No dislocation. Soft Tissues: Mild diffuse soft tissue swelling, increased since the prior examination. IMPRESSION: Stable postoperative findings of the distal fibula and medial malleolus. No acute bone or joint abnormality evident radiographically. Diffuse demineralization of the bones of the foot is unchanged. Mild diffuse soft tissue swelling of the ankle, increased since 09/26/2019. RADIA
== END 2019-11-08 10:16 | disposition home or self-care (01) ==
LOC: ED 09:17
DX: M25.572 Pain in left ankle and joints of left foot (principal); Z87.81 Personal history of (healed) traumatic fracture; I10 Essential (primary) hypertension; F17.210 Nicotine dependence, cigarettes, uncomplicated
CPT/HCPCS: 73610; 99283; A9270

== ENCOUNTER 2020-03-14 14:00 | Emergency (ER) | payer MEDICAID ==
[2020-03-14 14:11] VITALS: BP 155/105
[2020-03-14] MEDS ORDERED: CLINDAMYCIN 150 MG CAPSULE PO STA (14:24)
[2020-03-14] MEDS ORDERED: NAPROXEN 250 MG TABLET PO STA (14:25)
[2020-03-14] MEDS ORDERED: ACETAMINOPHEN 325 MG TABLET PO STA (14:25)
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
== END 2020-03-14 14:44 | disposition home or self-care (01) ==
LOC: ED 14:00
DX: K04.7 Periapical abscess without sinus (principal); F17.200 Nicotine dependence, unspecified, uncomplicated
CPT/HCPCS: 99283; 99284; A9270

== ENCOUNTER 2020-09-07 22:48 | Emergency (ER) | payer MEDICAID ==
[2020-09-07] MEDS ORDERED: AMOXICILLIN 250 MG Prepack 6 PO STA (23:10)
[2020-09-07] MEDS ORDERED: HYDROcod/ACET 5/325 Prepack 4 PO STA (23:10)
--- NOTE | 2020-09-07 23:13 | ED Physician Documentation ---
PD HPI HEENT - Stated complaint Stated Complaint: LT SIDE FACIAL PAIN - Chief complaint Chief Complaint: Heent - History obtained from History obtained from: Patient - History of Present Illness Timing - onset: How many days ago (3) Timing - duration: Days (3) Timing - details: Gradual onset, Still present Location: Tooth Improves: Medication Associated symptoms: Facial swelling. No: Fever, Congestion, Rhinorrhea, Trismus, Cough Similar symptoms before: Diagnosis (dental abscess) Recently seen: Not recently seen - Additional information Additional information: 40-year-old female with carious teeth has developed symptoms of another dental abscess. She had something similar to this back in March of last year. That was on the lower jaw. Today this is on the upper jaw and she has swelling to the left side of her face. She has bit of pain associated with this. She has not otherwise been ill. 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, Other : None HEENT: Chronic vision loss Psych: Depression, ADD/ADHD Musculoskeletal: Other Derm: None - Past Surgical History Past Surgical History: Yes General: Colonoscopy, EGD Ortho: Arthroscopic surgery /DATA WAREHOUSE SPECIALIST: section - Present Medications Home Medications: Ambulatory Orders Medication Instructions Recorded Confirmed Lamotrigine [Lamotrigine ER] 50 mg PO DAILY 11/08/19 09/07/20 [place] Carbonate [[place] 900 mg PO DAILY 11/08/19 09/07/20 Carbonate ER] cloNIDine [Catapres] 0.1 mg PO TID 11/08/19 09/07/20 Amoxicillin 875 mg PO BID #14 tablet 09/07/20 HYDROcod/ACETAM 5/325 [[place] 5/325] 1 - 2 ea PO Q6H PRN #12 tablet 09/07/20 - Allergies Allergies/Adverse Reactions: Allergies Allergy/AdvReac Type Severity Reaction Status Date / Time No Known Drug Allergies Allergy Verified 03/06/21 22:52 - Social History Does the pt smoke?: No Smoking Status: Never smoker Does the pt drink ETOH?: Yes Does the pt have substance abuse?: No - Immunizations Immunizations are current?: Yes - POLST Patient has POLST: No PD ED PE NORMAL - Vitals Vital signs reviewed: Yes (Hypertensive) - General General: Alert and oriented X 3, Well developed/nourished, Other (40-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 There are multiple carious teeth broken off at the root along the gumline on the left upper. There is tenderness without fluctuance to the buccal fold. Specifically over #12.) - Neck Neck: Supple, no meningeal sign - Respiratory Respiratory: No respiratory distress - Derm Derm: Normal color, Warm and dry, No rash - Extremities Extremities: No deformity, No edema - Neuro Neuro: Alert and oriented X 3, engine tester 2-12 intact, No motor deficit, No sensory deficit, Normal speech Eye Opening: Spontaneous Motor: Obeys Commands Verbal: Oriented GCS Score: 15 - Psych Psych: Normal mood Results - Vitals Vitals: Vital Signs - 24 hr 09/07/20 09/07/20 22:52 22:59 Temperature 36.5 C 36.5 C Heart Rate 89 89 Respiratory 16 16 Rate Blood Pressure 160/90 H 160/90 H O2 Saturation 100 100 Oxygen O2 Source Room air PD MEDICAL DECISION MAKING - ED course Complexity details: reviewed old records, considered differential, d/w patient ED course: 40-year-old female with another dental abscess today does not appear to have fluctuance in the buccal fold and I did not attempt to place a needle into the area. I have asked the patient to feel the area and if she is able to feel fluctuance to either return to the emergency department or poke it with a needle herself. She appeared to understand the need for drainage. Today we have prescribed amoxicillin and hydrocodone. Departure - Departure Disposition: 01 Home, Self Care Clinical Impression: Dental abscess Condition: Stable Instructions: ED Abscess Dental Follow-Up: Heather Busby PA-C [Primary Care Provider] - Prescriptions: Amoxicillin 875 mg PO BID #14 tablet HYDROcod/ACETAM 5/325 [[place] 5/325] 1 - 2 ea PO Q6H PRN #12 tablet PRN Reason: Pain
[2020-09-07 23:21] VITALS: BP 159/88
== END 2020-09-07 23:21 | disposition home or self-care (01) ==
LOC: ED 22:48
DX: K04.7 Periapical abscess without sinus (principal); K02.9 Dental caries, unspecified; I10 Essential (primary) hypertension
CPT/HCPCS: 99282; 99284